=== PATIENT | female | born 1950 | race Caucasian/White ===

== ENCOUNTER 2017-05-21 09:14 | Outpatient (CLI) | payer OTHER | END 2017-05-21 09:15 | disposition home or self-care (01) | LOC: SC 09:14 | PROVIDERS: ATTEND Internal Medicine Pulmonary Disease | DX: R06.83 Snoring (principal); R06.81 Apnea, not elsewhere classified; R53.83 Other fatigue; G47.10 Hypersomnia, unspecified | CPT/HCPCS: 99212; 99213 ==

== ENCOUNTER 2017-10-08 09:03 | Outpatient (CLI) | payer MEDICARE, OTHER | END 2017-10-08 09:04 | disposition home or self-care (01) | LOC: SC 09:03 | PROVIDERS: ATTEND Internal Medicine Pulmonary Disease | DX: G47.33 Obstructive sleep apnea (adult) (pediatric) (principal) | CPT/HCPCS: 99213; G0463; 99212 ==

== ENCOUNTER 2017-11-08 09:16 | Outpatient (CLI) | payer MEDICARE, OTHER ==
--- NOTE | 2017-11-08 11:42 | DEXA Report ---
DEXA SCAN: 11/08/2017 CLINICAL INDICATION: Breast cancer, antiestrogen therapy, postmenopausal. TECHNIQUE: Dual energy x-ray absorptiometry (DXA) was performed on a [employer] system. Regions measured are the AP spine, femoral neck, and, if needed, forearm. COMPARISON: None. In accordance with the International Society for Clinical Densitometry (ISCD) guidelines, data from previous exams may be reanalyzed using current recommendations and techniques. This is done to allow a more accurate basis for comparison with the current study. FINDINGS: The data for the lumbar spine is as follows: REGION BMD (g/cm/cm) T-SCORE Z-SCORE L1 1.260 1.1 2.2 L2 1.433 1.9 3.0 L3 1.431 1.9 3.0 L4 1.459 2.2 3.2 TOTAL 1.404 1.9 2.9 NOTE: All evaluable vertebrae are used for classification. The data for the hip is as follows: REGION BMD (g/cm/cm) T-SCORE Z-SCORE Neck 0.933 -0.8 0.4 TOTAL 0.982 -0.2 0.6 NOTE: The femoral neck or total proximal femur, whichever is lowest, is used for classification. IMPRESSION: THE WHO CLASSIFICATION BASED ON THE INTERNATIONAL REFERENCE STANDARD IS NORMAL. THE FRACTURE RISK IS NOT INCREASED. RECOMMENDATION: Patients with diagnosis of osteoporosis or osteopenia should have regular bone mineral density assessment. For those eligible for Medicare, routine testing is allowed once every 2 years. Testing frequency can be increased for patients who have rapidly progressing disease or for those who are receiving medical therapy to restore bone mass. COMMENT: World Health Organization (WHO) definitions for osteoporosis and osteopenia: NORMAL BMD: T-score at 1.0 or higher, fracture risk is low. OSTEOPENIA BMD: T-score between 1.0 and -2.5, fracture risk is increased. OSTEOPOROSIS BMD: T-score at 2.5 or lower, fracture risk high. National Osteoporosis Foundation recommends: 1. Obtain adequate dietary calcium (at least 1200 mg per day) and vitamin D (400 -800 international units per day). 2. Participate, as appropriate, in regular weightbearing and muscle- strengthening exercise. 3. Avoid tobacco use and reduce alcohol and caffeine intake. 4. For more detailed information see the website at www.NOF.org. TD: 11/08/2017 11:32 MTDD
== END 2017-11-08 09:17 | disposition home or self-care (01) ==
LOC: DI 09:16
PROVIDERS: ATTEND Family Medicine
DX: M89.9 Disorder of bone, unspecified (principal)
CPT/HCPCS: 77080

== ENCOUNTER 2018-04-01 07:58 | Outpatient (CLI) | payer MEDICARE ==
[2018-04-01 08:26] LABS: BASOPHILS % (AUTO) 0.9 %; EOSINOPHILS # (AUTO) 0.3 10^3/uL (0.0-0.7); EOSINOPHILS % (AUTO) 5.1 %; HGB - HEMOGLOBIN 14.1 g/dL (12.0-16.0); LYMPHOCYTES # (AUTO) 1.6 10^3/uL (1.5-3.5); LYMPHOCYTES % (AUTO) 30.5 %; MEAN CORPUSCULAR HEMOGLOBIN 32.5 pg (27.0-31.0); MEAN CORPUSCULAR HGB CONC 33.9 g/dL (32.0-36.0); MEAN CORPUSCULAR VOLUME 96.1 fL (81.0-99.0); MEAN PLATELET VOLUME 7.4 fL (7.9-10.8); MONOCYTES # (AUTO) 0.5 10^3/uL (0.0-1.0); MONOCYTES % (AUTO) 10.2 %; NEUTROPHILS # (AUTO) 2.8 10^3/uL (1.5-6.6); NEUTROPHILS % (AUTO) 53.3 %; PLT - PLATELET COUNT 293 10^3/uL (130-450); RED BLOOD COUNT 4.33 10^6/uL (4.20-5.40); RED CELL DISTRIBUTION WIDTH 13.5 % (12.0-15.0); WHITE BLOOD COUNT 5.2 x10^3/uL (4.8-10.8)
[2018-04-01 08:40] LABS: ALBUMIN 4.5 g/dL (3.2-5.5); ALBUMIN/GLOBULIN RATIO 1.4 (1.0-2.2); ALKALINE PHOSPHATASE 101 IU/L (42-121); ALT ALANINE AMINOTRANSFERASE 74 IU/L (10-60); AST ASPARTATE AMINOTRANSFERASE 45 IU/L (10-42); BILIRUBIN,TOTAL 0.8 mg/dL (0.2-1.0); BUN - BLOOD UREA NITROGEN 18 mg/dL (6-20); CALCIUM 9.9 mg/dL (8.5-10.3); CARBON DIOXIDE - CO2 29 mmol/L (21-32); CHLORIDE 98 mmol/L (101-111); CHOL/HDL RATIO 4.4 (<4.4); CHOLESTEROL 176 mg/dL; CREATININE 0.6 mg/dL (0.4-1.0); GFR - MDRD 100 (>89); GLUCOSE 116 mg/dL (70-100); HDL CHOLESTEROL 40 mg/dL; LDL CHOLESTEROL,CALCULATED 88 mg/dL; LDL/HDL RATIO 2.2 (<4.4); SODIUM 136 mmol/L (135-145); TOTAL PROTEIN 7.7 g/dL (6.7-8.2); VLDL CHOLESTEROL 48 mg/dL
== END 2018-04-01 07:59 | disposition home or self-care (01) ==
LOC: LAB 07:58
PROVIDERS: ATTEND Family Medicine
DX: K76.0 Fatty (change of) liver, not elsewhere classified (principal); E87.6 Hypokalemia; E78.5 Hyperlipidemia, unspecified; I10 Essential (primary) hypertension
CPT/HCPCS: 36415; 80053; 80061; 83721; 84443; 85025

== ENCOUNTER 2018-09-19 09:22 | Outpatient (CLI) | payer MEDICARE ==
--- NOTE | 2018-09-19 10:41 | Mammography Report ---
Reason: RIGHT BREAST CANCER Procedure Date: 09/19/2018 Accession Number: [id number] / [id number] Procedure: JOSE JUAN - Diagnostic Dig Bilat CPT Code: FULL RESULT: EXAM: Diagnostic Dig Bilat DATE: 09/19/2018 10:03 AM CLINICAL HISTORY: Diagnostic mammogram following up personal history of right breast cancer status post lumpectomy and chemoradiation in 2013. History of late childbearing. TECHNIQUE: Bilateral CC and MLO views as well as a right exaggerated CC view. COMPARISON: 08/21/2017 through 10/21/2013. FINDINGS: The breasts demonstrate heterogeneously dense fibroglandular parenchyma bilaterally. Postsurgical and posttreatment changes including typically benign appearing calcifications are seen in the right breast. Coarse typically benign calcifications are also seen in the left breast. No suspicious masses, architectural distortions or microcalcifications are identified. IMPRESSION: Probable benign findings RECOMMENDATION: Recommend routine annual diagnostic mammography unless otherwise clinically indicated. BIRADS CATEGORY 3 STANDARD QUALIFYING STATEMENTS: 1. This examination was not reviewed with the aid of Computer-Aided Detection (CAD). 2. A negative or benign imaging report should not delay biopsy if clinically suspicious findings are present. Consider surgical consultation if warrented. More than 5% of cancers are not identified by imaging. 3. Dense breasts may obscure an underlying neoplasm. 4. This examination was reviewed with the aid of 3D imaging (tomography).
== END 2018-09-19 09:23 | disposition home or self-care (01) ==
LOC: DI 09:22
PROVIDERS: ATTEND Internal Medicine Hematology & Oncology
DX: C50.911 Malignant neoplasm of unspecified site of right female breast (principal)
CPT/HCPCS: 77066

== ENCOUNTER 2018-10-08 09:17 | Outpatient (CLI) | payer MEDICARE | END 2018-10-08 09:18 | disposition home or self-care (01) | LOC: SC 09:17 | PROVIDERS: ATTEND Internal Medicine Pulmonary Disease | DX: G47.33 Obstructive sleep apnea (adult) (pediatric) (principal) | CPT/HCPCS: 99213; G0463; 99212 ==

== ENCOUNTER 2019-09-15 08:24 | Outpatient (CLI) | payer MEDICARE ==
--- NOTE | 2019-09-15 14:36 | Mammography Report ---
Reason: HX RT BREAST CA Procedure Date: 09/15/2019 Accession Number: [id number] / [id number] Procedure: JOSE JUAN - Diagnostic Dig Bilat CPT Code: Final Report FULL RESULT: EXAM: Diagnostic Dig Bilat DATE: 09/15/2019 9:18 AM CLINICAL HISTORY: The patient is a 68 year female with a personal history of right breast cancer, post conservation therapy 2013. Left breast reduction 2014. The patient is presenting with a palpable lump in the superficial lower inner position of the right breast. TECHNIQUE: (B) - Bilateral CC and MLO views were obtained. COMPARISON: 09/19/2018, 08/21/2017, 02/26/2015, 10/21/2013, 09/30/2012, 09/25/2011 PARENCHYMAL PATTERN: FINDINGS: RIGHT BREAST: Stable posttreatment deformity in the upper outer posterior position. Coarse parenchymal calcifications again identified. No developing mass, new distortion or pleomorphic calcifications. Specific attention to the site of reported focal palpable concern in the lower inner quadrant is mammographically stable. Recommend targeted ultrasound for complete evaluation. LEFT BREAST: The pattern of asymmetry is unchanged since prior studies. Scattered and loosely grouped calcifications again noted. There are no suspicious masses, calcifications, or areas of distortion. IMPRESSION: RIGHT BREAST: Incomplete BI-RADS Category 0. LEFT BREAST: Benign BI-RADS Category 2 RECOMMENDATION: RIGHT BREAST: The patient will be scheduled for a targeted ultrasound of the area of new palpable concern for complete evaluation. Note: The patient elected to schedule the ultrasound for an alternate date. The final impression is pending at this time. LEFT BREAST: (ANNUAL) - Recommend routine annual screening mammography. BI-RADS CATEGORY: (0) - Incomplete Examination - need additional evaluation. STANDARD QUALIFYING STATEMENTS: 1. This examination was not reviewed with the aid of Computer-Aided Detection (CAD). 2. A negative or benign imaging report should not preclude biopsy if clinically suspicious findings are present. 3. Dense breasts may obscure an underlying neoplasm. 4. This examination was reviewed with the aid of 3D breast imaging (tomosynthesis).
== END 2019-09-15 08:25 | disposition home or self-care (01) ==
LOC: DI 08:24
PROVIDERS: ATTEND Internal Medicine Hematology & Oncology
DX: C50.911 Malignant neoplasm of unspecified site of right female breast (principal)
CPT/HCPCS: 77066

== ENCOUNTER 2019-09-15 08:25 | Outpatient (CLI) | payer MEDICARE ==
--- NOTE | 2019-09-16 17:03 | DEXA Report ---
Reason: POSTMENOPAUSAL Procedure Date: 09/15/2019 Accession Number: [id number] / [id number] Procedure: DEX - Dexa Spine and/or Hip CPT Code: Final Report FULL RESULT: EXAM: Dexa Spine and/or Hip DATE: 09/15/2019 9:30 AM CLINICAL HISTORY: POSTMENOPAUSAL TECHNIQUE: Dual energy x-ray absorptiometry (DXA) was performed on a [employer] System. Regions measured are the AP Spine, femoral neck, and if needed forearm. COMPARISON: None. In accordance with the International Society for Clinical Densitometry (ISCD) guidelines, data from previous exams may be reanalyzed using current recommendations and techniques. This is done to allow a more accurate basis for comparison with the current study. FINDINGS: The data for the lumbar spine is as follows: BMD (g/cm/cm) T-SCORE Z-SCORE REGION L1 1.264 1.1 2.2 L2 1.435 2.0 3.0 L3 1.566 3.0 4.1 L4 1.626 3.5 4.6 TOTAL 1.485 2.5 3.6 NOTE: All evaluable vertebrae are used for classification The data for the hip is as follows: BMD (g/cm/cm) T-SCORE Z-SCORE REGION Neck 0.948 -0.7 0.5 TOTAL 1.011 0.0 0.9 NOTE: The femoral neck or total proximal femur, whichever is lowest, is used for classification. DXA RESULTS SUMMARY: Spine SCAN DATE AGE BMD CHANGE VS CHANGE VS PREVIOUS PREVIOUS % 09[age]15/2019 [age] 1.485 0.081* 5.8* 11/08/2017 [age] 1.404 * Denotes significant change at the 95% confidence level. Denotes dissimilar scan types or analysis methods. DXA RESULTS SUMMARY: Hip SCAN DATE AGE BMD CHANGE VS CHANGE VS PREVIOUS PREVIOUS % 09[age]15/2019 [age] 1.011 0.029 3.0 11/08/2017 [age] 0.982 * Denotes significant change at the 95% confidence level. Denotes dissimilar scan types or analysis methods. IMPRESSION: THE WHO CLASSIFICATION BASED ON THE INTERNATIONAL REFERENCE STANDARD IS NORMAL. THE FRACTURE RISK IS NOT INCREASED. RECOMMENDATION: Patients with diagnosis of osteoporosis or osteopenia should have regular bone mineral density assessment. For those eligible for Medicare, routine testing is allowed once every 2 years. Testing frequency can be increased for patients who have rapidly progressing disease or for those who are receiving medical therapy to restore bone mass. COMMENT: World Health Organization (WHO) definitions for osteoporosis and osteopenia: NORMAL BMD: T-score at -1.0 or higher, fracture risk is low OSTEOPENIA BMD: T-score between -1.0 and -2.5, fracture risk is increased. OSTEOPOROSIS BMD: T-score at -2.5 or lower, fracture risk is high. National Osteoporosis Foundation recommends: 1. Obtain adequate dietary calcium (at least 1200 mg per day) and vitamin D (400-800 international units per day). 2. Participate, as appropriate, in regular weightbearing and muscle-strengthening exercise. 3. Avoid tobacco use and reduce alcohol and caffeine intake. 4. For more detailed information see the website at www.NOF.org.
== END 2019-09-15 08:26 | disposition home or self-care (01) ==
LOC: DI 08:25
PROVIDERS: ATTEND Internal Medicine Hematology & Oncology
DX: Z78.0 Asymptomatic menopausal state (principal); C50.911 Malignant neoplasm of unspecified site of right female breast
CPT/HCPCS: 77080

== ENCOUNTER 2019-09-23 11:34 | Outpatient (CLI) | payer MEDICARE ==
--- NOTE | 2019-09-23 14:49 | Ultrasound Report ---
Reason: ABNORMAL MAMMOGRAM Procedure Date: 09/23/2019 Accession Number: [id number] / [id number] Procedure: US - Breast Unilateral Limited CPT Code: Final Report FULL RESULT: EXAM: Breast Unilateral Limited DATE: 09/23/2019 1:08 PM CLINICAL HISTORY: The patient is a 68-year-old female with a personal history of right breast cancer, post conservation therapy. The patient is presenting with a focal lump in the medial position (dermal location). COMPARISON: Diagnostic mammogram 09/15/2019 (no suspicious findings). TECHNIQUE: A high frequency transducer was utilized to evaluate the palpable lump in the 3 - 4:00 position. Doppler utilized. [employer] static images obtained. FINDINGS: There is a vague intradermal hypoechoic focus with associated vascularity at the site of palpable concern. This spans 6 mm in maximal dimension but is too indistinct to reliably characterize by ultrasound. The underlying breast tissue is grossly unremarkable. No underlying solid mass, distortion or hyperemia. IMPRESSION: BI-RADS category 2 RECOMMENDATION: Recommend clinical follow-up. Consider pathologic of the new skin lesion in this clinical setting.
== END 2019-09-23 11:35 | disposition home or self-care (01) ==
LOC: DI 11:34
PROVIDERS: ATTEND Internal Medicine Hematology & Oncology
DX: N64.89 Other specified disorders of breast (principal); C50.911 Malignant neoplasm of unspecified site of right female breast
CPT/HCPCS: 76642

== ENCOUNTER 2019-12-23 13:44 | Outpatient (CLI) | payer MEDICARE ==
--- NOTE | 2019-12-23 14:22 | SLEEP CARE CONSULTATION ---
Information from patient questionnaire entered by Tiffany Escobar. I have reviewed and concur with the information entered by Tiffany Escobar. This document represents the service I personally performed and the decisions made by me, Last De Jesus MD, [facility]. History of Present Illness Previous diagnosis: Moderate, Obstructive Sleep Apnea-Hypopnea Syndrome AHI: 20.5 Reason for follow up: annual Equipment type: CPAP Equipment obtained from: [employer] Mask style: Nasal pillows Prior sleep studies: Yes HPI additional information: HPI: Ms. Kaplan returned today for follow up of nasal CPAP therapy. She was diagnosed to have moderate obstructive sleep apnea-hypopnea syndrome. The patient wears with a nasal mask. She reports using the device nightly and all through the night. The compliance data show usage in 180 out of the past 180 nights, averaging 8.9 hours a night. The > 4 hour compliance rate for the past 180 days is 100%. She complained of no particular problem with the device such as soreness on the face, dry nose, epistaxis, nasal congestion or headache. She thinks that the pressure of 8 12 cmH2O is comfortable. On the CPAP therapy she notices improvement in her sleep quality, and that she wakes up feeling fresher in the morning and more awake/alert during the day. The [place] Sleepiness Scal e score 12. Her notices no snore at all. The average residual AHI is 1.3: and air leak, 0 L/min. The 90th percentile pressure is 9.2 cmH2O. CPAP Compliance Data - Data Reviewed with Patient Average duration of nightly device use: 8H 52M Compliance rate %: 99.4 Current pressure setting (cmH2O): 8-12 Humidity settin Heated hose settin Average residual AHI: 1.3 Average large leak: 0S Subjective Patient concerns: reports: other (MASK SLIDES OFF THE BACK OF HEAD) Initial [place] Sleepiness Scale score: 14 Current [place] Sleepiness Scale score: 12 Allergies and Home Medications Drug allergies reviewed: Yes Home medication list reviewed: Yes Review of Systems Review of systems same as previous: Yes Physical Exam Height: 5 ft 3 in Weight: 179 lb Body Mass Index: 31.6 BMI Classification: Obese Impression and Plan IMPRESSION: 1. Obstructive Sleep Apnea-Hypopnea Syndrome, moderate, with the patient continuing to do very well on nasal CPAP therapy. She has excellent compliance and significant clinical improvement. The current pressure appears effective and comfortable. Her mask fits well. Overall, she is very satisfied with treatment and plans to continue with it long-term. No adjustment is necessary today. PLAN: 1. Continue with autoCPAP set at 8 - 12 cmH2O. 2. Prescription made for supplies. 3. Try ResMed N30i mask 4. Try to lose weight. 5. Return in one year for follow up or earlier if there is any problem with the treatment. She will be eligible for a new machine then. I spent 100% of this visit face to face with the patient with greater than 50% of this was spent time counseling the patient and coordination of care.
== END 2019-12-23 13:45 | disposition home or self-care (01) ==
LOC: SC 13:44
PROVIDERS: ATTEND Internal Medicine Pulmonary Disease
DX: G47.33 Obstructive sleep apnea (adult) (pediatric) (principal); E66.9 Obesity, unspecified; Z68.31 Body mass index [BMI] 31.0-31.9, adult
CPT/HCPCS: 99213; G0463; 99212

== ENCOUNTER 2020-09-01 09:05 | Outpatient (CLI) | payer MEDICARE ==
[2020-09-01 09:28] LABS: CREATININE 0.6 mg/dL (0.4-1.0)
[2020-09-01] MEDS ORDERED: GADOBUTROL 10 MMOL/10 ML VIAL IVP ONE (11:06)
--- NOTE | 2020-09-01 17:20 | MRI Report ---
PROCEDURE: Pelvis W/WO INDICATIONS: PAIN IN RT HIP, HX BREAST CA CONTRAST: IV CONTRAST: Gadavist ml: 8.5 TECHNIQUE: Coronal ultra fast SE, sagittal breath-hold T2 FSE; axial T1 FSE with and without fat saturation thro ugh the pelvis. Optional long- and short-axis uterine nonbreath-hold T2 FSE through the uterus. Sag ittal or axial dynamic ultra fast GE during administration of contrast. Post-contrast axial or coron al ultra fast GE / 2-D spoiled GE with fat saturation from the iliac crests to the symphysis. Option al diffusion weighted imaging and ADC may be performed. COMPARISON: None. FINDINGS: Image quality: Excellent. Bones and joints: Bone marrow of the pelvic ring and proximal femurs show normal signal throughout. No intraosseous lesions or fractures. Trace bilateral hip joint effusions No avascular necrosis of the femoral heads. Lower lumbar spondylosis and facet arthropathy. Tendons: The gluteus medius and minimus tendons appear intact, without associated muscle atrophy. The iliopsoas tendon appears intact, without adjacent bursal fluid collections. The origin of the right hamstring tendon is intact although demonstrates mild intrasubstance T2 hyper intensity with age indeterminate low-grade strain/sprain. Labrum and cartilage: Right anterosuperior macerated chronic labral tear is present. Note, there are similar-appearing ante rosuperior labral tear seen on the left. On both sides, there is mild partial-thickness adjacent chondral loss. The alpha angle of the femur i s within normal limits at less than 55 degrees. Soft tissues: There is mild anterior right hip capsule thickening and T2 hyperintensity/edema. This appears asymmet britton to the left side. The proximal sciatic neurovascular bundle appears normal adjacent to the hamstring tendons. No free pelvic fluid. Bladder wall thickness is normal. Genitourinary structures and bowel loops appear normal where visualized. IMPRESSION: Thickening and signal changes involving the anterior right hip joint capsule, suggestive of mild caps ular sprain, chronic repetitive overuse or reactive to joint degeneration. 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 Adjacent partial thic kness chondral loss. Trace bilateral hip joint effusions Age indeterminate low-grade right hamstring origin tendinopathy. No suspicious enhancement identified. Reviewed by: Kamar Boothe MD on 09/01/2020 5:19 PM PST Approved by: Kamar Boothe MD on 09/01/2020 5:19 PM PST Station ID: [id number]
== END 2020-09-01 09:06 | disposition home or self-care (01) ==
LOC: DI 09:05
PROVIDERS: ATTEND Internal Medicine Hematology & Oncology
DX: M25.551 Pain in right hip (principal); C50.911 Malignant neoplasm of unspecified site of right female breast; S73.191A Other sprain of right hip, initial encounter; M25.452 Effusion, left hip; M25.451 Effusion, right hip; M47.816 Spondylosis without myelopathy or radiculopathy, lumbar region
CPT/HCPCS: 36415; 72197; 82565; A9585

== ENCOUNTER 2020-09-23 12:33 | Outpatient (CLI) | payer MEDICARE ==
--- NOTE | 2020-09-27 09:47 | Mammography Report ---
BILATERAL DIGITAL SCREENING MAMMOGRAM 3D/2D: 09/23/2020 CLINICAL: Routine screening. Personal history of right breast cancer. Comparison is made to exams dated: 09/23/2019 ultrasound, 09/15/2019 mammogram, 09/19/2018 mammogram, 08/21/2017 mammogram, 07/24/2016 mammogram, and 11/25/2015 ultrasound - [facility]. The tissue of both breasts is predominantly fatty. There are stable benign calcifications in both breasts. There also are benign post operative finding s in the right breast. No significant masses, calcifications, or other findings are seen in either breast. There has been no significant interval change. IMPRESSION: BENIGN There is no mammographic evidence of malignancy. A 1 year screening mammogram is recommended. This exam was interpreted at Station ID: [id number]. NOTE: For mammograms, a report in lay terms will be sent to the patient. Approximately 15% of breast malignancies will not be visualized mammographically. In the management of a palpable breast mass, a negative mammogram must not discourage biopsy of a clinically suspicious lesion. Electronically Signed By: Remi Tang acr/penrad:09/26/2020 19:15:23 ACR BI-RADS Category 2: Benign Finding(s) 3342F PARENCHYMAL PATTERN: (F) - The breast(s) demonstrate(s) diffuse fatty replacement. BI-RADS CATEGORY: (2) - 2 RECOMMENDATION: (ANNUAL) - Recommend routine annual screening mammography. [id number] 1 year screening LATERALITY: (B)
== END 2020-09-23 12:34 | disposition home or self-care (01) ==
LOC: DI.N 12:33
PROVIDERS: ATTEND Internal Medicine Hematology & Oncology
DX: Z12.31 Encounter for screening mammogram for malignant neoplasm of breast (principal); Z85.3 Personal history of malignant neoplasm of breast

== ENCOUNTER 2020-12-12 13:01 | Outpatient (CLI) | payer MEDICARE ==
--- NOTE | 2020-12-12 17:35 | XRAY Report ---
PROCEDURE: Lumbar Spine Complete INDICATIONS: LOW BACK PAIN TECHNIQUE: 5 views of the lumbar spine were acquired, including bilateral oblique views. COMPARISON: Correlation is made with prior lumbar spine CT, 02/11/2014. Correlation is also made with the accompanying hip plain films, 12/12/2020. FINDINGS: Bones: 5 [id number] vertebrae are present. There is normal bony alignment. No vertebral body compression fractures. No suspicious bony lesions. Moderate disc space narrowing is seen at L4-L5. The spinal alignment and spinal curvature are otherw ise within normal limits. Facet arthropathy is seen, which is most prominent inferiorly. Age-appro priate lower thoracic degenerative changes are seen. Soft tissues: Overlying bowel gas pattern is normal. No suspicious soft tissue calcifications. Ath erosclerotic calcification is seen. Cholecystectomy clips are seen. IMPRESSION: Focal L4-L5 degenerative change is seen. Reviewed by: Byron Temple MD on 12/12/2020 4:34 PM AKST Approved by: Byron Temple MD on 12/12/2020 4:34 PM [place] Station ID: [id number]
--- NOTE | 2020-12-12 17:37 | XRAY Report ---
PROCEDURE: Hips 2V BILAT INDICATIONS: HIP PAIN TECHNIQUE: An AP view of the pelvis and a frog-leg view of both testicular were acquired. COMPARISON: Correlation is made with the accompanying lumbar plain films, 12/12/2020 FINDINGS: Bones: No fractures or dislocations. No suspicious bony lesions. The visualized pelvic ring appear s intact. Note is made of age-appropriate degenerative change of the lower lumbar spine. There is moderate to severe superior joint space narrowing seen involving the left hip. There is asso ciated remodeling change, with subchondral sclerosis and osteophyte formation. Moderate degenerative change is seen of the right hip. Soft tissues: No suspicious soft tissue calcifications or masses. Note is made of pelvic phlebolit hs. IMPRESSION: There is moderate to severe left hip and moderate right hip degenerative change seen. If it would be helpful for clinical management decision making, please consider a dedicated hip MRI f or further evaluation (assuming that there is no contraindication). This should be performed accordi ng to the arthrogram protocol, if there is strong clinical concern for a labral abnormality. Reviewed by: Byron Temple MD on 12/12/2020 4:35 PM [place] Approved by: Byron Temple MD on 12/12/2020 4:35 PM [facility] Station ID: [id number]
== END 2020-12-12 13:02 | disposition home or self-care (01) ==
LOC: DI 13:01
PROVIDERS: ATTEND Internal Medicine
DX: M25.551 Pain in right hip (principal); M16.0 Bilateral primary osteoarthritis of hip; M54.5 Low back pain; M47.816 Spondylosis without myelopathy or radiculopathy, lumbar region; M48.061 Spinal stenosis, lumbar region without neurogenic claudication

== ENCOUNTER 2021-01-03 13:25 | Outpatient (CLI) | payer MEDICARE ==
--- NOTE | 2021-01-03 13:50 | SLEEP CARE CONSULTATION ---
Information from patient questionnaire entered by Raheem Johnson. I have reviewed and concur with the information entered by Raheem Johnson. This document represents the service I personally performed and the decisions made by me, Last De Jesus MD, [facility]. History of Present Illness Service Date and Time: 01/03/2021 1325 Previous diagnosis: Moderate, Obstructive Sleep Apnea-Hypopnea Syndrome AHI: 20.5 Reason for follow up: annual (Last seen 12/2019) Equipment type: CPAP Equipment obtained from: [employer] [facility] Mask style: Nasal pillows Prior sleep studies: Yes Year and Where: 2006 [facility] additional information: HPI: Ms. Kaplan returned today for follow up of nasal CPAP therapy. She was diagnosed to have moderate obstructive sleep apnea-hypopnea syndrome. The patient went to [facility] for the equipment and was fitted with a Respironics DreamWear nasal cushion mask. She continues to use the device nightly and all through the night. The compliance report shows usage in 178 nights out of the past 180 nights, averaging 9 hours a night. She complained of no particular problem with the device such as soreness on the face, dry nose, epistaxis, nasal congestion or headache. She thinks that the pressure of 8 - 12 cmH2O is comfortable. On the CPAP therapy she notices improvement in her sleep quality, and that she wakes up feeling fresher in the morning and more awake/alert during the day. She can no longer sleep without the CPAP. The [place] Sleepiness Scale score 12 (was 7). Her notices no snore at all. The average residual AHI is 2.0; and average time in large leak per day is 26 seconds. The 90th percentile pressure is 9.5 cmH2O. CPAP Compliance Data - Data Reviewed with Patient Average duration of nightly device use: 8 h 58 min Compliance rate %: 98.9 Current pressure setting (cmH2O): 8-12 Humidity settin Heated hose settin Average residual AHI: 1.4 Average large leak: 26 sec Subjective Current pressure setting perceived as: comfortable Initial [place] Sleepiness Scale score: 14 (in 2006) Current [place] Sleepiness Scale score: 12 Allergies and Home Medications Drug allergies reviewed: Yes Home medication list reviewed: Yes Review of Systems Review of systems same as previous: Yes Physical Exam Height: 5 ft 3 in Weight: 181 lb Body Mass Index: 32.1 BMI Classification: Obese Impression and Plan IMPRESSION: 1. Obstructive Sleep Apnea-Hypopnea Syndrome, moderate, with the patient continuing to do well on nasal CPAP therapy. She has excellent compliance and significant clinical improvement. The current pressure appears effective and comfortable. Overall, she is very satisfied with treatment and plans to continue with it long-term. No adjustment is necessary today. PLAN: 1. Continue with autoCPAP set between 8 and 12 cmH2O. 2. Try to lose some weight 3. Return in one year for follow up or earlier if there is any problem with the treatment. Follow up recommended for: Weight management Visit Type: In Office Time Spent with Patient (minutes): 15 Provider Statement: I spent 100% of the Face to Face Visit with the patient with greater than 50% spent counseling the patient and coordination of care.
== END 2021-01-03 13:26 | disposition home or self-care (01) ==
LOC: SC 13:25
PROVIDERS: ATTEND Internal Medicine Pulmonary Disease
DX: G47.33 Obstructive sleep apnea (adult) (pediatric) (principal); E66.9 Obesity, unspecified; Z68.32 Body mass index [BMI] 32.0-32.9, adult
CPT/HCPCS: 99212; G0463

== ENCOUNTER 2021-04-26 07:56 | Outpatient (CLI) | payer MEDICARE | END 2021-04-26 07:57 | disposition home or self-care (01) | LOC: DI 07:56 | PROVIDERS: ATTEND Internal Medicine | DX: I35.0 Nonrheumatic aortic (valve) stenosis (principal) | CPT/HCPCS: 93306 ==

== ENCOUNTER 2021-10-19 08:06 | Outpatient (CLI) | payer MEDICARE ==
--- NOTE | 2021-10-20 12:04 | Mammography Report ---
BILATERAL DIGITAL SCREENING MAMMOGRAM 3D/2D: 10/19/2021 CLINICAL: Routine screening. Personal history of right breast cancer. Comparison is made to exams dated: 09/23/2020 mammogram, 09/15/2019 mammogram, and 09/19/2018 mammogr am - [facility]. The tissue of both breasts is heterogeneously dense. This may low er the sensitivity of mammography. There are stable benign calcifications in both breasts. There also are benign post operative finding s in the right breast. No significant masses, calcifications, or other findings are seen in either breast. There has been no significant interval change. IMPRESSION: BENIGN There is no mammographic evidence of malignancy. A 1 year screening mammogram is recommended. This exam was interpreted at Station ID: [id number]. NOTE: For mammograms, a report in lay terms will be sent to the patient. Approximately 15% of breast malignancies will not be visualized mammographically. In the management of a palpable breast mass, a negative mammogram must not discourage biopsy of a clinically suspicious lesion. Electronically Signed By: Desmond jeffery/víctor:10/19/2021 09:33:08 ACR BI-RADS Category 2: Benign Finding(s) 3342F PARENCHYMAL PATTERN: (D) - The breast(s) demonstrate(s) heterogeneously dense fibroglandular bao crenshaw. BI-RADS CATEGORY: (2) - 2 RECOMMENDATION: (ANNUAL) - Recommend routine annual screening mammography. [id number] 1 year screening LATERALITY: (B)
== END 2021-10-19 08:07 | disposition home or self-care (01) ==
LOC: DI 08:06
PROVIDERS: ATTEND Physician Assistant
DX: Z12.31 Encounter for screening mammogram for malignant neoplasm of breast (principal); Z85.3 Personal history of malignant neoplasm of breast

== ENCOUNTER 2021-10-19 08:10 | Outpatient (CLI) | payer MEDICARE ==
--- NOTE | 2021-10-19 09:20 | DEXA Report ---
PROCEDURE: Dexa Spine and/or Hip INDICATIONS: POST MENOPAUSAL TECHNIQUE: Dual energy x-ray absorptiometry (DXA) was performed on a [employer] System. Regions measur ed are the AP Spine, femoral neck, and if needed forearm. COMPARISON: DEXA 09/15/2019 FINDINGS: Lumbar Spine: Bone Mineral Density 1.507 g/cm/cm,T score 2.7, compared to 2.5 Left Hip: Bone Mineral Density 0.953 g/cm/cm,T score -0.4, compared to 0.0 Left Femoral Neck: Bone Mineral Density 0.825 g/cm/cm, T score -1.5, compared to -0.7 (T score greater or equal to -1.0: NORMAL) (T score from -1.1 to -2.4: OSTEOPENIA) (T score less than or equal to -2.5 to: OSTEOPOROSIS) Impression: Mild osteopenia in the left femoral neck, progressive compared to prior exam. Patients with diagnosis of osteoporosis or osteopenia should have regular bone mineral density assess ment. For those eligible for Medicare, routine testing is allowed once every 2 years. Testing frequ ency can be increased for patients who have rapidly progressing disease or for those who are receivin g medical therapy to restore bone mass. Reviewed by: Yolanda Castaneda MD on 10/19/2021 9:19 AM PST Approved by: Yolanda Castaneda MD on 10/19/2021 9:19 AM PST Station ID: [id number]
== END 2021-10-19 08:11 | disposition home or self-care (01) ==
LOC: DI 08:10
PROVIDERS: ATTEND Physician Assistant
DX: M85.88 Other specified disorders of bone density and structure, other site (principal); Z78.0 Asymptomatic menopausal state

== ENCOUNTER 2022-01-30 09:05 | Outpatient (CLI) | payer MEDICARE ==
[2022-01-30 12:22] VITALS: BP 127/72
--- NOTE | 2022-01-30 12:22 | SLEEP CARE CONSULTATION ---
Information from patient questionnaire entered by Jose Lopez MA. I have reviewed and concur with the information entered by Jose Lopez MA. This document represents the service I personally performed and the decisions made by me, Last De Jesus MD, [facility]. History of Present Illness Service Date and Time: 01/30/2022 0905 Previous diagnosis: Moderate, Obstructive Sleep Apnea-Hypopnea Syndrome AHI: 20.5 Reason for follow up: annual (LAST SEEN 12/2020 , ANM,) Equipment type: CPAP Equipment obtained from: [employer] ([employer]) Mask style: Nasal pillows Prior sleep studies: Yes Year and Where: [address] [facility] Sleep [facility] HPI additional information: Ms. Kaplan returned today for follow up of nasal CPAP therapy. She was diagnosed to have moderate obstructive sleep apnea-hypopnea syndrome. The patient gets her supplies from [employer] because she has [employer] as her insurance. She continues to use the device nightly and all through the night. The compliance report shows usage in 30 nights out of the past 30 nights, averaging 8.1 hours a night. She complained of no particular problem with the device such as soreness on the face, dry nose, epistaxis, nasal congestion or headache. She thinks that the pressure of 8 - 12 cmH2O is comfortable. On the CPAP therapy she notices improvement in her sleep quality, and that she wakes up feeling fresher in the morning and more awake/alert during the day. She can no longer sleep without the CPAP. The [place] Sleepiness Scale score 8 (was 12). Her notices no snore at all. The average residual AHI is 3.7 was 2.0); and average time in large leak per day is 0 seconds. The 90th percentile pressure is 10.0 cmH2O. Sleep Study - Results Prior sleep studies: Yes Year and Where: 2006 [facility] CPAP Compliance Data - Data Reviewed with Patient Average duration of nightly device use: 8 HOURS 6 MINUTES Compliance rate %: 100 Current pressure setting (cmH2O): 8-12 Humidity settin Heated hose settin Average residual AHI: 3.7 Average large leak: 0 Subjective Missed days of use due to: reports: other (POWER OUTAGE) Patient concerns: reports: mask leak noise, other (MASK WONT STAY ON) Current pressure setting perceived as: comfortable Initial [place] Sleepiness Scale score: 14 (in 2006) Current [place] Sleepiness Scale score: 8 (2021) Allergies and Home Medications Drug allergies reviewed: Yes Home medication list reviewed: Yes Allergy and home medication list: Allergies bee venom protein (honey bee) Allergy (Severe, Verified 11/22/21 12:59) Edema Physical Exam Vital signs obtained and entered by: Edith LOPEZ CMA AAMA Blood Pressure: 127/72 (PULSE 70, RIGHT, RESP 16, ) Cuff size: wrist Heart Rate: 69 O2 Saturation: 96 (N95) Height: 5 ft 3 in Weight: 182 lb (WITH CLOTHES) Body Mass Index: 32.2 BMI Classification: Obese Impression and Plan IMPRESSION: 1. Obstructive Sleep Apnea-Hypopnea Syndrome, moderate, with the patient continuing to do well on nasal CPAP therapy. She has excellent compliance and significant clinical improvement. The current pressure appears effective and comfortable. Overall, she is very satisfied with treatment and plans to continue with it long-term. No adjustment is necessary today. Because the CPAP is now older than the useful life of 5 years, I will order the patient a new one and make it an autoCPAP set between 8 and 12 cmH2O. She also would like to have a traveling CPAP for her upcoming trip to [place]. PLAN: 1. Prescription made for an autoCPAP, heated humidifier, and related supplies. 2. Prescription made for a traveling CPAP. She will buy one online. 3. Return for follow up after one month of using the CPAP. Prescriptions: Auto CPAP Follow up with Sleep Care in: 1-2 months Visit Type: In Office Time Spent with Patient (minutes): 15 Provider Statement: I spent 100% of the Face to Face Visit with the patient with greater than 50% spent counseling the patient and coordination of care.
== END 2022-01-30 09:06 | disposition home or self-care (01) ==
LOC: SC 09:05
PROVIDERS: ATTEND Internal Medicine Pulmonary Disease
DX: G47.33 Obstructive sleep apnea (adult) (pediatric) (principal); E66.9 Obesity, unspecified; Z68.32 Body mass index [BMI] 32.0-32.9, adult
CPT/HCPCS: 99212; G0463

== ENCOUNTER 2022-05-16 08:14 | Outpatient (CLI) | payer MEDICARE ==
--- NOTE | 2022-05-16 13:39 | XRAY Report ---
PROCEDURE: Chest 2 View X-Ray INDICATIONS: CHRONIC COUGH TECHNIQUE: 2 view(s) of the chest. COMPARISON: None. FINDINGS: Surgical changes and devices: Surgical clips noted in the right axilla. Status post prior anterior ce rvical discectomy and fusion. Lungs and pleura: No pleural effusions or pneumothorax. Lungs are clear. Mediastinum: Mediastinal contours are normal. Heart size is normal. Bones and chest wall: No suspicious bony abnormalities. Soft tissues appear unremarkable. IMPRESSION: Chest without acute cardiopulmonary abnormalities or focal airspace disease. Reviewed by: Tam Hernandez MD on 05/16/2022 1:38 PM PDT Approved by: Tam Hernandez MD on 05/16/2022 1:38 PM PDT Station ID: [id number]
== END 2022-05-16 08:15 | disposition home or self-care (01) ==
LOC: DI 08:14
PROVIDERS: ATTEND Internal Medicine
DX: R05.3 Chronic cough (principal)

== ENCOUNTER 2022-11-07 11:12 | Outpatient (CLI) | payer MEDICARE ==
--- NOTE | 2022-11-08 11:56 | Mammography Report ---
BILATERAL DIGITAL SCREENING MAMMOGRAM 3D/2D WITH EXAGGERATED CC: 11/07/2022 CLINICAL: Routine screening. Personal history of right breast cancer. Comparison is made to exams dated: 10/19/2021 mammogram, 09/23/2020 mammogram, 09/15/2019 mammogram, 09/19/2018 mammogram, and 08/21/2017 mammogram - [facility]. Both breasts are heterogeneously dense, which may obscure small masses (category c / 51-75% glandular tissue). There are stable benign calcifications in both breasts. There also are benign post operative finding s in the right breast. No significant masses, calcifications, or other findings are seen in either breast. There has been no significant interval change. IMPRESSION: BENIGN There is no mammographic evidence of malignancy. A 1 year screening mammogram is recommended. This exam was interpreted at Station ID: [id number]. NOTE: For mammograms, a report in lay terms will be sent to the patient. Approximately 15% of breast malignancies will not be visualized mammographically. In the management of a palpable breast mass, a negative mammogram must not discourage biopsy of a clinically suspicious lesion. Electronically Signed By: Karoline gonzalez/penrad:11/07/2022 17:50:48 ACR BI-RADS Category 2: Benign Finding(s) 3342F PARENCHYMAL PATTERN: (D) - The breast(s) demonstrate(s) heterogeneously dense fibroglandular bao crenshaw. BI-RADS CATEGORY: (2) - 2 RECOMMENDATION: (ANNUAL) - Recommend routine annual screening mammography. [id number] 1 year screening LATERALITY: (B)
== END 2022-11-07 11:13 | disposition home or self-care (01) ==
LOC: DI 11:12
PROVIDERS: ATTEND Internal Medicine Hematology & Oncology
DX: Z12.31 Encounter for screening mammogram for malignant neoplasm of breast (principal); Z85.3 Personal history of malignant neoplasm of breast

== ENCOUNTER 2023-02-12 15:03 | Outpatient (CLI) | payer MEDICARE ==
[2023-02-12 16:20] VITALS: BP 128/64
--- NOTE | 2023-02-12 16:20 | SLEEP CARE CONSULTATION ---
Information from patient questionnaire entered by Alvaro Day. I have reviewed and concur with the information entered by Alvaro Day. This document represents the service I personally performed and the decisions made by me, Last De Jesus MD, [facility]. History of Present Illness Service Date and Time: 02/12/2023 1503 Previous diagnosis: Moderate, Obstructive Sleep Apnea-Hypopnea Syndrome AHI: 20.5 Reason for follow up: annual (LAST SEEN 01/2022) Equipment type: CPAP (Survios SD CARD NEEDED FOR DOWNLOAD AND PRESSURE CHANGES) Equipment obtained from: [employer] ([employer]) Mask style: Nasal pillows Prior sleep studies: Yes Year and Where: 2006 [facility] Sleep [facility] HPI additional information: Ms. Kaplan returned today for follow up of nasal CPAP therapy. She was diagnosed to have moderate obstructive sleep apnea-hypopnea syndrome. The patient gets her supplies from [employer] because she has [employer] as her insurance. She continues to use the device nightly and all through the night. The compliance report shows usage in 280 nights out of the past 365 nights, ave raging 7.7 hours a night. On the nights she did not use the ResMed AirSense 11, she used her AirMini. She complained of no particular problem with the device such as soreness on the face, dry nose, epistaxis, nasal congestion or headache. She thinks that the pressure of 8 - 12 cmH2O is comfortable. On the CPAP therapy she notices improvement in her sleep quality, and that she wakes up feeling fresher in the morning and more awake/alert during the day. She can no longer sleep without the CPAP. The [place] Sleepiness Scale score 13 (was 8). Her notices no snore at all. The average residual AHI is 0.9 (was 3.7); and average time in large leak per day is 2.3 seconds. The 90th percentile pressure is 11.2 cmH2O. She lost 20 lbs sine last year. Sleep Study - Results Prior sleep studies: Yes Year and Where: 2006 [facility] Subjective Initial [place] Sleepiness Scale score: 14 (in 2006) Current [place] Sleepiness Scale score: 13 (02/12/23) Allergies and Home Medications Drug allergies reviewed: Yes Home medication list reviewed: Yes Allergy and home medication list: Allergies bee venom protein (honey bee) Allergy (Severe, Verified 02/09/23 11:31) Edema Review of Systems Review of systems same as previous: Yes Physical Exam Vital signs obtained and entered by: ALVARO Cao MA Blood Pressure: 128/64 (LEFT ARM) Cuff size: regular Heart Rate: 66 O2 Saturation: 95 Height: 5 ft 3 in Weight: 174 lb 3.2 oz Body Mass Index: 30.8 BMI Classification: Obese Impression and Plan IMPRESSION: 1. Obstructive Sleep Apnea-Hypopnea Syndrome, moderate, with the patient continuing to do well on nasal CPAP therapy. She has excellent compliance and significant clinical improvement. The current pressure appears effective and comfortable. Overall, she is very satisfied with treatment and plans to continue with it long-term. Because her residual AHI is very low, possibly due to the weight loss, I will lower the pressure range. PLAN: 1. AutoCPAP lowered to 5 10 cmH2O via the modem. 2. AirMini lowered to 5 10 cmH2O via her [employer] ced. 3. Return for follow up in a year or earlier if there is any problem. 4. Consider repeating the in-laboratory polysomnography if she loses another 10 lbs. Adjust device pressure to (cmH2O): 5 - 10 cmH20 Counseling Topics: Weight control Follow up with Sleep Care in: 1 year Visit Type: In Office Time Spent with Patient (minutes): 15 Provider Statement: I spent 100% of the Face to Face Visit with the patient with greater than 50% spent counseling the patient and coordination of care.
== END 2023-02-12 15:04 | disposition home or self-care (01) ==
LOC: SC 15:03
PROVIDERS: ATTEND Internal Medicine Pulmonary Disease
DX: G47.33 Obstructive sleep apnea (adult) (pediatric) (principal); E66.9 Obesity, unspecified; Z68.30 Body mass index [BMI] 30.0-30.9, adult
CPT/HCPCS: 99212; G0463

== ENCOUNTER 2023-11-15 14:28 | Outpatient (CLI) | payer MEDICARE ==
--- NOTE | 2023-11-16 11:43 | Mammography Report ---
BILATERAL DIGITAL SCREENING MAMMOGRAM 3D/2D: 11/15/2023 CLINICAL: Routine screening. Personal history of right breast cancer. Comparison is made to exams dated: 11/07/2022 mammogram, 10/19/2021 mammogram, 09/23/2020 mammogram, 11/24/2018 ultrasound, 09/15/2019 mammogram, and 09/19/2018 mammogram - [facility]. Both breasts are heterogeneously dense, which may obscure small masses (category c / 51-75% glandular tissue). There are stable benign calcifications in both breasts. There also are benign post operative finding s in the right breast. No significant masses, calcifications, or other findings are seen in either breast. There has been no significant interval change. IMPRESSION: BENIGN There is no mammographic evidence of malignancy. A 1 year screening mammogram is recommended. This exam was interpreted at Station ID: [id number]. NOTE: For mammograms, a report in lay terms will be sent to the patient. Approximately 15% of breast malignancies will not be visualized mammographically. In the management of a palpable breast mass, a negative mammogram must not discourage biopsy of a clinically suspicious lesion. Electronically Signed By: Tam Hernandez M.D. [email or web address]/víctor:11/16/2023 07:09:49 letter sent: No_Letter ACR BI-RADS Category 2: Benign Finding(s) 3342F PARENCHYMAL PATTERN: (D) - The breast(s) demonstrate(s) heterogeneously dense fibroglandular bao crenshaw. BI-RADS CATEGORY: (2) - 2 Mammogram [id number] 1 year screening LATERALITY: (B)
== END 2023-11-15 14:29 | disposition home or self-care (01) ==
LOC: DI.N 14:28
PROVIDERS: ATTEND Internal Medicine Hematology & Oncology
DX: Z12.31 Encounter for screening mammogram for malignant neoplasm of breast (principal); Z85.3 Personal history of malignant neoplasm of breast; R92.333 Mammographic heterogeneous density, bilateral breasts; R92.1 Mammographic calcification found on diagnostic imaging of breast

== ENCOUNTER 2024-04-04 14:30 | Outpatient (CLI) | payer MEDICARE ==
--- NOTE | 2024-04-04 15:34 | Sleep Patient Instructions ---
Sleep Center Visit Summary - Patient Visit Information Reason for Visit: Annual follow-up - Patient Instructions Additional Instructions: You will continue with CPAP therapy with pressure set at 5-10 cmH2O. A supply prescription will be updated with your DME. Please follow up with the sleep care office in 1 year. - Clinic Information Contact: [facility] [address] [place] [address] [email or web address] T: [phone]
--- NOTE | 2024-04-04 15:38 | SLEEP CARE CONSULTATION ---
Information from patient questionnaire entered by Susana Day. I have reviewed and concur with the information entered by Susana Day. This document represents the service I personally performed and the decisions made by me, Sofi Kumar ARNP. History of Present Illness Service Date and Time: 04/04/2024 1430 Previous diagnosis: Moderate, Obstructive Sleep Apnea-Hypopnea Syndrome AHI: 20.5 (2006) Reason for follow up: annual (LAST SEEN 01/2023) Equipment type: CPAP (RESMED Airsense 11, s/u 01/2022) Equipment obtained from: [email or web address] ([place]) Mask style: Nasal pillows Backup mask available: Yes Prior sleep studies: Yes Year and Where: 2006 [facility] Sleep [facility] HPI additional information: SP JOHNSON was diagnosed to have moderate, AHI 20.5, obstructive sleep apnea- hypopnea syndrome and returned today for CPAP therapy annual follow-up. Sleep Study - Results Prior sleep studies: Yes Year and Where: 2006 [facility] Sleep [facility] CPAP Compliance Data - Data Reviewed with Patient Average duration of nightly device use: 8 HRS 18 MINS Compliance rate %: 89 (04/03/23-04/01/24) Current pressure setting (cmH2O): 8-12 Average residual AHI: 0.6 Compliance data discussion: She uses her AirMini travel machine when not using her regular machine. Subjective Patient concerns: reports: mask discomfort (only with AirMini), dry mouth, nose, throat (only on Airmini). denies: aerophagia, air blowing in eyes, mask leak noise, condensation in mask/hose, nasal congestion, epistaxis Observed to snore while using device: No Current pressure setting perceived as: comfortable On therapy, patient: reports: sleeping better, awakening more refreshed, being more awake and alert during the day, more rested overall. denies: drowsiness while driving Initial [place] Sleepiness Scale score: 14 (in 2006) Current [place] Sleepiness Scale score: 14 (04/04/24) Allergies and Home Medications Known drug allergies: No (as listed) Drug allergies reviewed: Yes Home medication list reviewed: Yes (no changes) Allergy and home medication list: Allergies bee venom protein (honey bee) Allergy (Severe, Verified 04/02/24 16:38) Edema Review of Systems Review of systems same as previous: No (HYPERPARATHYROID) Physical Exam Vital signs obtained and entered by: SUSANA Cao MA Blood Pressure: 153/74 (LEFT ARM) Cuff size: regular Heart Rate: 69 O2 Saturation: 97 Height: 5 ft 3 in Weight: 183 lb 3.2 oz Body Mass Index: 32.4 BMI Classification: Obese Impression and Plan 1. Obstructive Sleep Apnea-Hypopnea Syndrome, moderate, with good treatment compliance and good apnea control. On CPAP therapy, the patient has better sleep quality and is more rested overall. At her last visit, her machine should have been adjusted to 5-10 cmH2O but this is not reflected online. I will resend the change to her machine through the modem. She brought in her travel Resmed AirMini but I was unable to access it to ensure it was set correctly. I advised her to check with her [employer] company who may be able to access her AirMini and ensure the pressures are correct. She voiced understanding. Patient's apnea severity and rationale for treatment to reduce apnea, improve sleep quality and reduce cardiovascular and cerebrovascular events was reviewed. I also reviewed the benefit of consistent device use of CPAP for hypertension. 2. Obesity, unspecified. Currently patients BMI is 32.4. Obesity increases the risk of apnea, CPAP pressure requirements and overall health risks especially cardiovascular and diabetes. Thus patient is advised to lose weight. * Continue auto CPAP pressure to 5-10 cmH2O * Update supply prescription * Notify me if snoring with mask or feeling that the pressure is too much or too little * Attempt to lose weight * Call this office if any problems using CPAP * Return for follow up in 12 months, or sooner if concerns arise Counseling Topics: Spare mask, Weight loss health impact Prescriptions: Device supplies Follow up with Sleep Care in: 1 year Visit Type: In Office Time Spent with Patient (minutes): 23 Provider Statement: I spent 100% of the Face to Face Visit with the patient with greater than 50% spent counseling the patient and coordination of care.
[2024-04-04 15:41] VITALS: BP 153/74; O2SAT 97
== END 2024-04-04 14:31 | disposition home or self-care (01) ==
LOC: SC 14:30
PROVIDERS: ATTEND Nurse Practitioner Family
DX: G47.33 Obstructive sleep apnea (adult) (pediatric) (principal); E66.9 Obesity, unspecified; Z68.32 Body mass index [BMI] 32.0-32.9, adult
CPT/HCPCS: 99213; G0463; 99212

== ENCOUNTER 2024-04-29 07:53 | Outpatient (CLI) | payer MEDICARE ==
--- NOTE | 2024-04-29 18:25 | XRAY Report ---
PROCEDURE: Chest 2V INDICATIONS: CHEST PAIN TECHNIQUE: 2 views of the chest were acquired. COMPARISON: 05/16/2022. FINDINGS: Surgical changes and devices: Post ACDF changes in lower cervical spine are seen. Surgical clips are noted in right axilla. Lungs and pleura: No pleural effusions or pneumothorax. Lungs are clear. Mediastinum: Mediastinal contours appear normal. Heart size is normal. Bones and chest wall: No suspicious bony lesions. Overlying soft tissues appear unremarkable. IMPRESSION: No acute cardiopulmonary process. Reviewed by: Trent Barrett MD on 04/29/2024 6:23 PM PDT Approved by: Trent Barrett MD on 04/29/2024 6:23 PM PDT Station ID: [id number]
== END 2024-04-29 07:54 | disposition home or self-care (01) ==
LOC: DI 07:53
PROVIDERS: ATTEND Physician Assistant
DX: R07.9 Chest pain, unspecified (principal); R05.9 Cough, unspecified

== ENCOUNTER 2024-05-23 15:21 | Outpatient (CLI) | payer MEDICARE ==
[2024-05-23 15:35] LABS: HCT - HEMATOCRIT 41.6 % (37.0-47.0); HGB - HEMOGLOBIN 13.7 g/dL (12.0-16.0); MEAN CORPUSCULAR HEMOGLOBIN 30.8 pg (27.0-31.0); MEAN CORPUSCULAR HGB CONC 32.9 g/dL (32.0-36.0); MEAN CORPUSCULAR VOLUME 93.5 fL (81.0-99.0); MEAN PLATELET VOLUME 9.8 fL (7.9-10.8); RED BLOOD COUNT 4.45 10^6/uL (4.20-5.40); RED CELL DISTRIBUTION WIDTH 13.7 % (12.0-15.0); WHITE BLOOD COUNT 7.6 x10^3/uL (4.8-10.8)
[2024-05-23 16:03] LABS: ALBUMIN 4.7 g/dL (3.2-5.5); ALBUMIN/GLOBULIN RATIO 1.9 (1.0-2.2); BILIRUBIN,TOTAL 0.6 mg/dL (0.2-1.0); CALCIUM 10.8 mg/dL (8.5-10.3); CREATININE 0.6 mg/dL (0.6-1.3); POTASSIUM 3.4 mmol/L (3.5-4.5); TOTAL PROTEIN 7.2 g/dL (6.4-8.9)
[2024-05-23 16:12] LABS: THYROID STIMULATING HORMONE 7.16 uIU/mL (0.34-5.60)
== END 2024-05-23 15:22 | disposition home or self-care (01) ==
LOC: LAB 15:21
PROVIDERS: ATTEND Internal Medicine Cardiovascular Disease
DX: I35.0 Nonrheumatic aortic (valve) stenosis (principal); R07.89 Other chest pain; R06.02 Shortness of breath; R00.2 Palpitations
CPT/HCPCS: 36415; 80053; 84443; 85027

== ENCOUNTER 2024-05-27 15:10 | Outpatient (CLI) | payer MEDICARE | END 2024-05-27 15:11 | disposition home or self-care (01) | LOC: DI 15:10 | PROVIDERS: ATTEND Physician Assistant | DX: I35.0 Nonrheumatic aortic (valve) stenosis (principal); R07.9 Chest pain, unspecified; R06.02 Shortness of breath; R05.9 Cough, unspecified | CPT/HCPCS: 93307 ==